=== PATIENT | male | born 1930 | race Caucasian/White ===

== ENCOUNTER 2017-09-24 14:25 | Observation (INO) | payer MEDICARE, BC ==
[2017-09-24] MEDS ORDERED: Acetaminophen/HYDROcodone 325-5 MG Tab PO ONE (17:45)
[2017-09-24] MEDS: Acetaminophen/HYDROcodone 325-5 MG Tab ONE ×2 (17:50→19:31)
[2017-09-24] MEDS: Acetaminophen/HYDROcodone 325-10 MG Tab PO PRN ×2 (17:50→21:56)
[2017-09-24] MEDS ORDERED: KETOPROFEN TOP PRN (18:18)
[2017-09-24] MEDS ORDERED: Acetaminophen 500 MG Tab PO PRN (18:18)
[2017-09-24] MEDS ORDERED: Magnesium Hydroxide 400 MG/5 ML Susp 30 ML Cup PO PRN (18:18)
[2017-09-24] MEDS ORDERED: TROLAMINE TOP PRN (18:18)
[2017-09-24] MEDS ORDERED: MENTHOL TOP PRN (18:18)
[2017-09-24] MEDS ORDERED: Morphine 2 MG/ML Syringe IVPUSH ONE (18:36)
[2017-09-24] MEDS: Mirtazapine 15 MG Tab PO SCH (20:44)
[2017-09-24] MEDS: Simvastatin 20 MG Tab PO SCH (20:44)
[2017-09-24] MEDS: Aspirin 81 MG Tab.EC PO SCH (20:44)
[2017-09-25] MEDS: Acetaminophen/HYDROcodone 325-10 MG Tab PO PRN ×2 (05:27→09:33)
[2017-09-25] MEDS ORDERED: 20% Ketoprofen 12 GM, 3% Menthol 1.8 GM & 8% Trolamine Salicylate 46.2 GM TOP PRN ×3 (08:36)
[2017-09-25] MEDS: Cholecalciferol (Vitamin D3) 1,000 Unit Tab PO SCH (09:31)
[2017-09-25] MEDS ORDERED: Ketorolac 30 MG/ML SDV IVPUSH SCH (10:15)
[2017-09-25] MEDS: Amoxicillin/Clavulanate K 875-125 MG Tab PO SCH ×2 (11:25→21:15)
[2017-09-25] MEDS: Hydrocortisone/Neomycin/Polymyxin B Otic Soln 10 ML Bottle EARRT SCH ×4 (11:25→22:48)
[2017-09-25] MEDS: Lidocaine 5% 700 MG Patch TOP SCH (12:03)
--- NOTE | 2017-09-25 12:48 | PN ---
09/25/2017 PATIENT NAME: GABBI ROSADO CHIEF COMPLAINT: Right subscapular pain along with right ear pain and a lump on the side of his right ear, however, denies any dizziness, however, he does have instability in his gait. No longer right-sided weakness. BRIEF HISTORY: I had seen this 87-year-old gentleman yesterday at [facility] when he had fallen. He is complaining of some right scapular and shoulder pain. He stated he had got up yesterday morning to eat breakfast. He became dizzy and weakness in his fingers. He had fell against the cupboard. He was in his usual state of health at that time. Again, he just had a dizziness spell. He did injure his right scapular and lacerating his right elbow. He did not hit his head or lose consciousness. He has no histories of stroke in the past. However, he does take 81 mg of aspirin. He lives by himself. He had recently lost his about a year ago. His family who is out of town, was concerned regarding a possible CVA, pain control measures. He was sent over to the Hospital for a head CT and other diagnostics and was admitted to observation yesterday at . Update today, the patient did agree to observation overnight. His EKG did show a sinus rhythm with right bundle branch block, which is a new change for him since 2014. Troponin was normal. CBC was normal. Electrolytes were normal. He is scheduled for a carotid ultrasound this morning. Head CT did not show any intracranial process; however, it did show normal age-related atrophy with large and small-vessel disease. Right rib series do show older fractures, healed right 9th and 10th ribs, however, no acute cardiopulmonary findings or any fractures. Right scapular, no official interpretation; however, I do not see any fracture. PHYSICAL EXAM: VITAL SIGNS: Blood pressure 121/71, heart rate 63, temperature afebrile, respiratory rate 18, and O2 saturation 95% on room air. GENERAL: The patient is alert and oriented, in no acute distress. HEENT: He does have tender, mild right-sided facial edema around the parotid gland, he appears to have no drainage. Intraoral cavity, no erythema. Right ear, normal TM with good light reflex; however, he does have some flaking noted. NECK: He has no carotid bruits. Supple. He does have some significant point tenderness subscapular area in his right region. CV: Regular rate and rhythm. S1 and S2 normal. GI: Nontender. Good bowel tones. LUNGS: His lungs are clear to auscultation. LYMPH: No lymphadenopathy. EXTREMITIES: On his right elbow, slight avulsion, it appears to be healing. NEUROLOGICAL: Patient alert and oriented. No longer has no right upper extremity weakness, good, actually mild 4/5 strength. No slurred speech. No facial asymmetry. Good gag reflex. Gross motors 2 to 12 intact. IMPRESSION/PLAN: 1. Rule out CVA. This has been ruled out. Parotitis, right-sided. 2. Right scapular pain. Official results are pending. Pain control measures. 3. Weakness and debilitation. 4. GERD. 5. Hypercholesterolemia. 6. Carotid artery disease. 7. 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 12.BPH, all stable. DISPOSITION AND OVERALL PLAN: We will continue in observation today. The patient is slightly debilitated and weak. We will give him a chair today. Antibiotics for parotitis, Amoxil 875 mg p.o. b.i.d. Avoid morphine as discussed, does cause him hallucinations. Limited Toradol. Scheduled Tylenol. We will place a Lidoderm patch to scapular area. Carotid ultrasound today. /[id number]/MODL
[2017-09-25] MEDS: Pantoprazole 40 MG Tab.CR PO SCH (15:39)
[2017-09-25] MEDS ORDERED: Ketorolac 30 MG/ML SDV IM SCH (16:00)
[2017-09-25] MEDS: Ketorolac 30 MG/ML SDV IM SCH (16:26)
[2017-09-25] MEDS: Aspirin 81 MG Tab.EC PO SCH (21:06)
[2017-09-25] MEDS: Simvastatin 20 MG Tab PO SCH (21:07)
[2017-09-25] MEDS: Mirtazapine 15 MG Tab PO SCH (21:07)
[2017-09-26] MEDS: Ketorolac 30 MG/ML SDV IM SCH ×2 (00:21→08:10)
[2017-09-26] MEDS: Hydrocortisone/Neomycin/Polymyxin B Otic Soln 10 ML Bottle EARRT SCH ×2 (04:13→08:15)
[2017-09-26] MEDS: Cholecalciferol (Vitamin D3) 1,000 Unit Tab PO SCH (08:15)
[2017-09-26] MEDS: Pantoprazole 40 MG Tab.CR PO SCH (08:19)
[2017-09-26] MEDS: Lidocaine 5% 700 MG Patch TOP SCH (09:21)
[2017-09-26] MEDS: Amoxicillin/Clavulanate K 875-125 MG Tab PO SCH (09:21)
--- NOTE | 2017-09-27 14:27 | DISCH ---
The patient was admitted in observation on 09/24/2017, discharged today from observation 09/26/2017. FINAL DIAGNOSES: 1. Cerebrovascular accident, which has been ruled out. 2. Right-sided parotitis. 3. Right scapular contusion. 4. Right-sided external otitis. BRIEF HISTORY: This 87-year-old gentleman I had seen in [facility] while he had come in as a walk-in when he had fallen at home. He got up that morning of admission slightly dizzy, fell against the cupboard, bruising his right scapula and shoulder. He was getting up to eat, he said he felt dizzy and weak. He had come in, had some weakness in his right upper extremity, however, no facial abnormality. However, there was a slight concern of stroke. He was sent over to the [facility]. Head CT did not show any hemorrhagic stroke, did show some small chronic vessel disease and disorder. He has no histories of strokes in the past. He was on 81 mg of aspirin. He was admitted in observation for pain control and ongoing monitoring. EKG on admission showed sinus rhythm with right bundle-branch block which was new change for him since 2014. His troponins were normal. He CBC was normal as long as electrolytes were normal. HOSPITAL COURSE: Hospital course went well. He did have some ongoing pain, which was controlled with Lidoderm patch with Toradol which helped him tremendously. He regained all function back in his right upper extremity. On discharge, he had cranial nerves 2 through 12 grossly intact. Chest x-ray did not show any acute abnormalities other than the old 9 and [address] showed no intracranial hemorrhaging. No signs of CVA, although he does have some small-vessel disease. Carotid ultrasound was performed, which demonstrated bilateral carotid atherosclerosis with stenosis between 50% and 69%; on his right side, was less than 50%. Neuro checks performed. He never became hemodynamically unstable. He was afebrile. Blood pressure was well controlled. He was more ambulatory. He was started on amoxicillin for parotitis. I also added polymyxin otic solution for his right ear. His swelling in his right side of his ear improved tremendously. Toradol really helped him. Lidoderm patch was placed on his scapular area. PHYSICAL EXAMINATION: VITAL SIGNS: On discharge, temperature 97.2, heart rate 67, blood pressure 138/83, O2 sats 93%, respiratory rate 18. LUNGS: Clear to auscultation. NEUROLOGICAL: Cranial nerves 2 through 12 grossly intact. He had very limited pain in his scapular area. He was ambulatory, conversing. CV: Regular rate and rhythm. LABORATORY DATA: White count 5.0. Hematocrit and hemoglobin normal. Sodium 140, potassium 4.6, BUN 19 with a creatinine 1.24. Estimated GFR 55. MEDICATION CHANGES AND ADJUSTMENTS: On discharge: 1. Amoxicillin 875 mg p.o. b.i.d. (newly added). 2. Polymyxin otic drops, three drops every four hours, right ear. (Newly added). 3. Toradol 10 mg p.o. b.i.d. every eight hours, limited doses (newly added for pain). DISPOSITION: The patient will be discharged from observation. He does desire to go home. He does have family in the area now who can help with him. I will see him in the [facility] next week. He is to notify us of any ongoing weakness or any increase in pain or any fever. /[id number]/MODL
== END 2017-09-26 10:45 | disposition home or self-care (01) ==
LOC: KA.DI 14:25 → KA.MS 15:33
PROVIDERS: ADMIT Nurse Practitioner Family; ATTEND Nurse Practitioner Family
DX: R42 Dizziness and giddiness (principal); K11.20 Sialoadenitis, unspecified; S40.011A Contusion of right shoulder, initial encounter; H60.91 Unspecified otitis externa, right ear; R53.1 Weakness; K21.9 Gastro-esophageal reflux disease without esophagitis; E78.00 Pure hypercholesterolemia, unspecified; I25.10 Atherosclerotic heart disease of native coronary artery without angina pectoris; N40.0 Benign prostatic hyperplasia without lower urinary tract symptoms; I10 Essential (primary) hypertension; G89.29 Other chronic pain; M79.7 Fibromyalgia; W19.XXXA Unspecified fall, initial encounter; Z79.899 Other long term (current) drug therapy; Z79.82 Long term (current) use of aspirin; Z88.8 Allergy status to other drugs, medicaments and biological substances; Z88.7 Allergy status to serum and vaccine; Z85.46 Personal history of malignant neoplasm of prostate; Z90.49 Acquired absence of other specified parts of digestive tract; Z87.891 Personal history of nicotine dependence
CPT/HCPCS: 36415; 70450; 71101-RT; 73010-RT; 80048; 85025; 93880; 96372; 96374; A9270-GY; G0378; J1885

== ENCOUNTER 2020-05-09 09:19 | Day surgery (SDC) | payer MEDICARE, BC ==
[2020-05-09] MEDS ORDERED: Propofol 200 MG/20 ML SDV IV ONE (09:20)
[2020-05-09] MEDS ORDERED: ceFAZolin 1 GM Vial IV ONE (09:20)
[2020-05-09] MEDS ORDERED: Sodium Chloride 0.9% 10 ML Syringe FLUSH PRN (09:30)
[2020-05-09] MEDS: Lactated Ringers 1,000 ML IV SCH (09:50)
[2020-05-09] MEDS ORDERED: Lidocaine 2% Jelly 5 ML Tube ONE (10:09)
[2020-05-09] MEDS ORDERED: Propofol 200 MG/20 ML SDV ONE (10:18)
[2020-05-09] MEDS ORDERED: ceFAZolin 1 GM Vial ONE (10:57)
[2020-05-09] MEDS: Lidocaine 2% Jelly 5 ML Tube ONE (11:07)
--- NOTE | 2020-05-09 11:22 | PCM.OPNOTE ---
- General Post-Op/Procedure Note Date of Surgery/Procedure: 05/09/20 Operative Procedure(s): Operative procedure cystoscopy. Findings: Cystoscopy. Pre Op Diagnosis: Urinary frequency, hesitancy. Previous history of prostate carcinoma. Post-Op Diagnosis: Prostatic channel is open. Anesthesia Technique: MAC, Moderate Sedation Primary Surgeon: Marika Manriquez Complications: None Condition: Good Free Text/Narrative:: Preoperative diagnosis: Urinary frequency, slight hesitancy, history of prostate carcinoma. Postoperative diagnosis: As above. See performed: Cystoscopy. Informed consent was obtained for the patient regarding this procedure. All possible complications were thoroughly discussed. Patient understands and wishes to proceed. He was kept in the lithotomy position. Genitals were thoroughly prepped. Cystoscopy was accomplished using a forward-viewing [employer] Ze[employer] cystoscope using the 20 Yi obturator sheath. The urethra was completely normal. There was no evidence of obstruction. Prostatic urethra was open. Slight regrowth at the right lobe of the prostate. Bladder neck trigone, ureteric orifices were normal. Bladder mucosa was trabeculated. No intravesical stone or neoplasm noted. The scope was withdrawn.
== END 2020-05-09 12:35 | disposition home or self-care (01) ==
LOC: KA.SDS 09:19
PROVIDERS: ATTEND Family Medicine
DX: R35.0 Frequency of micturition (principal); R39.11 Hesitancy of micturition; E78.00 Pure hypercholesterolemia, unspecified; R73.9 Hyperglycemia, unspecified; Z85.46 Personal history of malignant neoplasm of prostate; Z79.899 Other long term (current) drug therapy; Z79.82 Long term (current) use of aspirin
CPT/HCPCS: 00910; J0690; J2704; J7120